=== PATIENT | male | born 1930 | race African-American/Black ===

== ENCOUNTER 2019-10-03 10:58 | Inpatient (IN) | payer MEDICARE ==
[~2019-10-03] VITALS: Ht 172.7 cm; Wt 72.1 kg
[2019-10-03] MEDS ORDERED: CEFTRIAXONE 1 G PREMIX 50 ML IV SCH (12:00)
[2019-10-03 12:28] LABS: BASOPHILS % 0.5 % (0.0-2.0); EOSINOPHILS % 0.6 % (0.0-5.0); HEMATOCRIT. 53.9 % (42.0-52.0); HEMOGLOBIN. 17.7 g/dL (14.0-18.0); LYMPHOCYTES % 26.3 % (20.0-50.0); MEAN CORPUSCULAR VOLUME 88.3 fL (80.0-94.0); MONOCYTES % 6.2 % (2.0-8.0); NEUTROPHILS % 66.4 % (40.0-76.0); RED CELL DISTRIBUTION WIDTH 14.7 % (11.6-14.6)
[2019-10-03 12:33] LABS: CHLORIDE 107 mEq/L (98-107)
[2019-10-03] MEDS ORDERED: ASPIRIN 325MG EC TABLET PO ONE (12:45)
[2019-10-03] MEDS ORDERED: FUROSEMIDE 20MG/2ML VIAL IVP ONE (12:45)
[2019-10-03] MEDS ORDERED: NITROGLYCERIN OINT 1GM/INCH UDPKT TD ONE (12:45)
[2019-10-03 12:49] LABS: MEAN PLATELET VOLUME 9.7 fl (7.4-10.4); PLATELET 126 x1000/uL (130-400)
[2019-10-03] MEDS ORDERED: CEFTRIAXONE 1 G PREMIX 50 ML IV ONE (13:30)
[2019-10-03] MEDS ORDERED: AZITHROMYCIN 500 MG in DEXT 5% WATER 250 ML IV SCH (13:30)
[2019-10-03 14:37] LABS: CLARITY URINE CLEAR (CLEAR); COLOR URINE DARK YELLOW (YELLOW); KETONES URINE NEGATIVE (NEGATIVE); LEUKOCYTE ESTERASE URINE NEGATIVE (NEGATIVE); NITRITE URINE NEGATIVE (NEGATIVE); OCCULT BLOOD URINE 2+ (NEGATIVE); PH URINE 5.5 (4.5-8.0); PROTEIN URINE 4+ (NEGATIVE); SPECIFIC GRAVITY URINE 1.017 (1.005-1.030)
[2019-10-03 15:43] LABS: INR 1.4; PROTHROMBIN TIME 14.7 sec (9.6-11.0)
[2019-10-03] MEDS ORDERED: MORPHINE SULFATE 2 MG/ML CPJ (NOT FOR IM USE) IV PRN (17:15)
[2019-10-03] MEDS ORDERED: HYDROCODONE/ACETAMINOPHEN 5/325MG TABLET PO PRN (17:15)
[2019-10-03] MEDS ORDERED: ACETAMINOPHEN 325MG TABLET PO PRN (17:15)
[2019-10-03] MEDS ORDERED: IPRATROPIUM/ALBUTEROL 0.5-3(2.5)MG/3ML NEB HHN PRN (17:15)
[2019-10-03] MEDS ORDERED: HYDRALAZINE 20MG/ML VIAL IV PRN ×2 (17:30→22:00)
[2019-10-03] MEDS ORDERED: MVI, ADULT NO.1 10 ML, FOLIC ACID 1 MG, THIAMINE HCL 100 MG in SODIUM CHLORIDE 0.9% 1,0... IV NR ×4 (18:00)
[2019-10-03] MEDS: AMLODIPINE 10MG TABLET PO SCH (18:33)
[2019-10-03] MEDS: CLONIDINE 0.1MG TABLET PO PRN (19:37)
[2019-10-03 22:40] VITALS: BP 178/115
[2019-10-03 23:00] VITALS: BP 178/115
[2019-10-04] VITALS: BP 147/86
[2019-10-04] MEDS ORDERED: LIP40 MT (02:45)
[2019-10-04] MEDS ORDERED: ASPI-1497 MT (02:45)
[2019-10-04] MEDS ORDERED: METO25TA6 PO (02:45)
[2019-10-04] MEDS ORDERED: LISI-604 MT (02:45)
[2019-10-04 04:00] VITALS: BP 156/99
[2019-10-04] MEDS: CLONIDINE 0.1MG TABLET PO PRN (05:45)
[2019-10-04 06:34] LABS: BASOPHILS % 0.2 % (0.0-2.0); EOSINOPHILS % 0.8 % (0.0-5.0); HEMATOCRIT. 48.3 % (42.0-52.0); HEMOGLOBIN. 16.3 g/dL (14.0-18.0); MEAN CORPUSCULAR HEMOGLOBIN 29.3 pg (28.0-32.0); MEAN CORPUSCULAR VOLUME 86.9 fL (80.0-94.0); MEAN PLATELET VOLUME 9.7 fl (7.4-10.4); MONOCYTES % 7.1 % (2.0-8.0); NEUTROPHILS % 66.9 % (40.0-76.0); PLATELET 124 x1000/uL (130-400); RED BLOOD CELL COUNT 5.56 mill/uL (4.7-6.1); RED CELL DISTRIBUTION WIDTH 14.3 % (11.6-14.6)
[2019-10-04 07:08] LABS: T4 FREE 1.34 ng/dL (0.76-1.46)
[2019-10-04] MEDS: AMLODIPINE 10MG TABLET PO SCH (08:27)
[2019-10-04] MEDS: CEFTRIAXONE 1 G PREMIX 50 ML IV SCH (13:33)
[2019-10-04] MEDS ORDERED: AZITHROMYCIN 500 MG in DEXT 5% WATER 250 ML IV SCH (15:00)
[2019-10-04 15:02] LABS: INR 1.3; PROTHROMBIN TIME 13.7 sec (9.6-11.0)
[2019-10-04 15:07] LABS: BG BASE EXCESS -2.2 mmol/L (-2.0-2.0); BG CARBOXYHEMOGLOBIN 0.2 % (0.5-1.5); BG DEOXYHEMOGLOBIN 3.2 % (0.0-5.0); BG FRACTION INSPIRED OXYGEN 21; BG METHEMOGLOBIN 0.2 % (0.0-1.5); BG OXYGEN SATURATION 96.8 % (92.0-98.5); BG OXYHEMOGLOBIN 96.4 % (94.0-97.0); BG PCO2 25.3 mmHg (35.0-45.0); BG PH 7.493 (7.350-7.450); BG PO2 84.3 mmHg (75.0-100.0); BG SAMPLE SITE LEFT RADIAL; BG TOTAL HEMOGLOBIN 16.8 g/dL (12.0-18.0); BG VENT MODE ROOM AIR
[2019-10-04] MEDS ORDERED: IPRATROPIUM/ALBUTEROL 0.5-3(2.5)MG/3ML NEB HHN PRN (16:45)
[2019-10-04] MEDS ORDERED: BISACODYL 10MG SUPP PR PRN (16:45)
[2019-10-04] MEDS: AZITHROMYCIN 500 MG in DEXT 5% WATER 250 ML IV SCH (17:49)
[2019-10-04] MEDS: ENOXAPARIN 80MG/0.8ML SYR SUBCUT SCH (17:50)
[2019-10-04 20:27] VITALS: BP 160/106
[2019-10-05] VITALS: BP 157/85
[2019-10-05 04:00] VITALS: BP 162/108
[2019-10-05 05:58] LABS: BASOPHILS % 0.3 % (0.0-2.0); EOSINOPHILS % 1.4 % (0.0-5.0); HEMATOCRIT. 44.1 % (42.0-52.0); HEMOGLOBIN. 14.8 g/dL (14.0-18.0); LYMPHOCYTES % 27.8 % (20.0-50.0); MEAN CORPUSCULAR HEMOGLOBIN 29.3 pg (28.0-32.0); MEAN CORPUSCULAR VOLUME 87.6 fL (80.0-94.0); MEAN PLATELET VOLUME 9.8 fl (7.4-10.4); MONOCYTES % 7.7 % (2.0-8.0); NEUTROPHILS % 62.8 % (40.0-76.0); PLATELET 107 x1000/uL (130-400); RED BLOOD CELL COUNT 5.04 mill/uL (4.7-6.1); RED CELL DISTRIBUTION WIDTH 14.3 % (11.6-14.6)
[2019-10-05 06:15] LABS: CHLORIDE 108 mEq/L (98-107)
[2019-10-05 08:00] VITALS: BP 179/102
[2019-10-05] MEDS: CLONIDINE 0.1MG TABLET PO PRN (08:35)
[2019-10-05] MEDS: AMLODIPINE 10MG TABLET PO SCH (08:35)
[2019-10-05] MEDS: ENOXAPARIN 80MG/0.8ML SYR SUBCUT SCH ×2 (08:35→17:24)
[2019-10-05 12:00] VITALS: BP 115/81
[2019-10-05] MEDS: CARVEDILOL 3.125 MG TABLET PO SCH (12:00)
[2019-10-05] MEDS: CEFTRIAXONE 1 G PREMIX 50 ML IV SCH (13:23)
[2019-10-05] MEDS ORDERED: IOHEXOL-350 100 ML BOTTLE ONE (14:51)
[2019-10-05] MEDS: SPIRONOLACTONE 25MG TABLET PO SCH (15:41)
[2019-10-05] MEDS: AZITHROMYCIN 500 MG in DEXT 5% WATER 250 ML IV SCH (15:42)
[2019-10-05 16:00] VITALS: BP 122/91
[2019-10-05] MEDS: AMLODIPINE 5MG TABLET PO SCH (17:26)
[2019-10-05 20:00] VITALS: BP 141/111
[2019-10-05] MEDS: HYDRALAZINE HCL 25MG TABLET PO SCH (21:29)
[2019-10-06] VITALS (7 sets, daily range): BP systolic 138–164; BP diastolic 84–100
[2019-10-06 06:07] LABS: HEMATOCRIT 42.6 % (42.0-52.0); HEMOGLOBIN 14.5 g/dL (14.0-18.0); MEAN CORPUSCULAR HEMOGLOBIN 29.5 pg (28.0-32.0); MEAN CORPUSCULAR VOLUME 86.8 fL (80.0-94.0); PLATELET 119 x1000/uL (130-400)
[2019-10-06 06:12] LABS: CHLORIDE 106 mEq/L (98-107)
[2019-10-06] MEDS: ENOXAPARIN 80MG/0.8ML SYR SUBCUT SCH (06:21)
[2019-10-06] MEDS: HYDRALAZINE HCL 25MG TABLET PO SCH ×2 (08:36→20:25)
[2019-10-06] MEDS: CARVEDILOL 3.125 MG TABLET PO SCH ×2 (08:36→20:24)
[2019-10-06] MEDS: AMLODIPINE 5MG TABLET PO SCH ×2 (08:37→17:50)
[2019-10-06] MEDS: SPIRONOLACTONE 25MG TABLET PO SCH (08:37)
[2019-10-06] MEDS ORDERED: REGADENOSON 0.4 MG/5 ML IV NR (12:30)
[2019-10-06] MEDS ORDERED: REGADENOSON 0.4 MG/5 ML IV ONE (13:48)
[2019-10-06] MEDS: CEFTRIAXONE 1 G PREMIX 50 ML IV SCH (15:35)
[2019-10-06] MEDS: TAMSULOSIN HCL 0.4MG SR CAPSULE PO SCH (15:35)
[2019-10-06] MEDS: AZITHROMYCIN 500 MG TABLET PO SCH (17:50)
[2019-10-07] VITALS (7 sets, daily range): BP systolic 128–156; BP diastolic 83–98
[2019-10-07 06:39] LABS: BASOPHILS % 0.3 % (0.0-2.0); EOSINOPHILS % 1.7 % (0.0-5.0); HEMATOCRIT. 42.6 % (42.0-52.0); HEMOGLOBIN. 14.2 g/dL (14.0-18.0); LYMPHOCYTES % 30.1 % (20.0-50.0); MEAN CORPUSCULAR HEMOGLOBIN 28.9 pg (28.0-32.0); MEAN PLATELET VOLUME 9.5 fl (7.4-10.4); MONOCYTES % 7.4 % (2.0-8.0); NEUTROPHILS % 60.5 % (40.0-76.0); PLATELET 124 x1000/uL (130-400); RED CELL DISTRIBUTION WIDTH 14.4 % (11.6-14.6)
[2019-10-07 06:56] LABS: CHLORIDE 105 mEq/L (98-107)
[2019-10-07] MEDS: CARVEDILOL 3.125 MG TABLET PO SCH (08:57)
[2019-10-07] MEDS: SPIRONOLACTONE 25MG TABLET PO SCH (08:57)
[2019-10-07] MEDS: AMLODIPINE 5MG TABLET PO SCH ×2 (08:57→17:00)
[2019-10-07] MEDS: HYDRALAZINE HCL 25MG TABLET PO SCH (08:57)
[2019-10-07] MEDS: TAMSULOSIN HCL 0.4MG SR CAPSULE PO SCH (08:57)
[2019-10-07] MEDS ORDERED: SIMETHICONE/SOD BICARB/CIT AC 1 EACH GRAN.EF.PK ONE (09:49)
[2019-10-07] MEDS ORDERED: SODIUM BICARBONATE 4% (2.4MEQ) 5ML VIAL IV ONE (09:50)
[2019-10-07] MEDS: CEFTRIAXONE 1 G PREMIX 50 ML IV SCH (12:25)
[2019-10-07] MEDS: CLONIDINE 0.1MG TABLET PO PRN (13:16)
[2019-10-07] MEDS: AZITHROMYCIN 500 MG TABLET PO SCH (17:00)
== END 2019-10-07 18:52 | disposition home or self-care (01) | DRG 193 ==
LOC: ER 10:58 → 6WST 14:13 → ENRESERV 20:30 → 6WST 21:55
PROVIDERS: ADMIT Internal Medicine; ATTEND Internal Medicine
DX: J18.9 Pneumonia, unspecified organism (principal); I50.23 Acute on chronic systolic (congestive) heart failure; J96.02 Acute respiratory failure with hypercapnia; D68.9 Coagulation defect, unspecified; I31.3 Pericardial effusion (noninflammatory); I82.411 Acute embolism and thrombosis of right femoral vein; E87.2 Acidosis; D69.6 Thrombocytopenia, unspecified; I11.0 Hypertensive heart disease with heart failure; I35.1 Nonrheumatic aortic (valve) insufficiency; I48.91 Unspecified atrial fibrillation; I16.0 Hypertensive urgency; E11.8 Type 2 diabetes mellitus with unspecified complications; I07.1 Rheumatic tricuspid insufficiency; J84.10 Pulmonary fibrosis, unspecified; I70.0 Atherosclerosis of aorta; N40.0 Benign prostatic hyperplasia without lower urinary tract symptoms; I25.10 Atherosclerotic heart disease of native coronary artery without angina pectoris
CPT/HCPCS: 32555; 36415; 36600; 71045; 71275; 74177; 78452; 80048; 80053; 80061; 81003; 82375; 82550; 82805; 83605; 83880; 84153; 84439; 84443; 84484; 85025; 85027; 87804; 88108; 88312; 93005; 93017; 93306; 93970; 94618; 99291; A9500; J0360; J0456; J0696; J1650; J1940; J2785; J3411; J3490; J7030; J7060; J7517; Q9967; G0103